=== PATIENT | male | born 1955 | race Caucasian/White ===

== ENCOUNTER 2016-06-14 11:13 | Emergency (ER) | payer OTHER ==
--- NOTE | 2016-06-14 12:16 | RAD ---
Indication: Bradycardia. Single frontal view of the chest performed at 1200 hours was reviewed. No prior study is available for comparison. No mediastinal shift is noted. Heart is of normal size and configuration. Lung phan appear clear. IMPRESSION: NO ACTIVE CARDIOPULMONARY DISEASE IS NOTED.
[2016-06-14 12:46] LABS: Hematocrit 48 % (42-52); Hemoglobin 16.6 g/dl (14.0-18.0); Mean Corpuscular HGB Conc 34 g/dl (31-36); Mean Corpuscular Hemoglobin 30 pg (27-31); Mean Corpuscular Volume 86 fL (80-94); Mean Platelet Volume 9 um3 (7.4-10.4); Red Blood Count 5.62 10^6/ul (4.0-5.4); Red Cell Distribution Width 15 % (10.5-15); White Blood Count 9.4 10^3/ul (3.5-10.8)
[2016-06-14 12:59] LABS: Albumin 4.6 g/dL (3.2-5.2); Calcium 10.3 mg/dL (8.6-10.3); EGFR African American 85.7 (>60); EGFR Non-African American 66.7 (>60); Globulin 3.3 g/dL (2-4); Magnesium 2.2 mg/dL (1.9-2.7); Potassium 4.9 mmol/L (3.5-5.0); Total Bilirubin 0.9 mg/dL (0.2-1.0); Total Protein 7.9 g/dL (6.4-8.9)
[2016-06-14 13:03] LABS: Troponin I 0.06 ng/mL (<0.04)
[2016-06-14] MEDS ORDERED: Aspirin Low Dose CHEW TAB* 81 MG PO ONE (13:28)
[2016-06-14] MEDS ORDERED: Rivaroxaban TAB(*) 10 MG PO ONE (13:46)
--- NOTE | 2016-06-14 16:57 | ED ---
Satinder Paz Benjamin, scribed for Richard Amezquita MD on 06/14/16 at 1141 . Palpitations / Dysrhythmia - HPI Summary HPI Summary: 60yo male who was sent from his PCPs office after EKG readings of afib and inverted t wave. Pt reports SOB with movement and exertion. Denies visual changes, NAV[place], or weakness. - History of Current Complaint Chief Complaint: EDDysrhythmPalp Time Seen by Provider: 06/14/16 11:31 Hx Obtained From: Patient Onset/Duration: Sudden Onset, Lasting Minutes Severity Initially: Mild Severity Currently: None Aggravating: Nothing Alleviating: Nothing Associated Signs & Symptoms: Shortness of Breath - Allergy/Home Medications Allergies/Adverse Reactions: Allergies Allergy/AdvReac Type Severity Reaction Status Date / Time No Known Allergies Allergy Verified 10/08/15 13:48 PMH/Surg Hx/FS Hx/Imm Hx Endocrine/Hematology History: Denies: Hx Diabetes Cardiovascular History: Reports: Hx Hypertension - ON MEDICATION Denies: Hx Pacemaker/ICD Respiratory History: Reports: Hx Asthma - gerd/ulcers in high school GI History: Reports: Hx Ulcer - at 20 years of age Denies: Hx Gastrointestinal Bleed - no dark stool History: Denies: Hx Renal Disease Sensory History: Denies: Hx Hearing Aid Psychiatric History: Denies: Hx Panic Disorder - Surgical History Surgery Procedure, Year, and Place: FINGER SURGERY, TONSILS Infectious Disease History: No Infectious Disease History: Denies: History Other Infectious Disease, Traveled Outside the [place] in Last 30 Days - Family History Known Family History: Positive: Cardiac Disease, Renal Disease - Social History Lives: With Family Alcohol Use: Weekly Alcohol Amount: COUPLE TIMES WKLY Substance Use Type: Reports: None Smoking Status (MU): Never Smoked Tobacco Review of Systems Constitutional: Negative Eyes: Negative ENT: Negative Positive: Palpitations Positive: Shortness Of Breath Gastrointestinal: Negative Genitourinary: Negative Musculoskeletal: Negative Skin: Negative Neurological: Negative Psychological: Normal All Other Systems Reviewed And Are Negative: Yes Physical Exam Triage Information Reviewed: Yes Vital Signs On Initial Exam: Initial Vitals Temp Pulse Resp BP Pulse Ox 98.4 F 54 20 152/81 98 06/14/16 11:21 06/14/16 11:21 06/14/16 11:21 06/14/16 11:21 06/14/16 11:21 Vital Signs Reviewed: Yes Appearance: Positive: Well-Appearing, No Pain Distress, Obese Skin: Positive: Warm, Skin Color Reflects Adequate Perfusion, Dry Head/Face: Positive: Normal Head/Face Inspection Eyes: Positive: Normal ENT: Positive: Normal ENT inspection Neck: Positive: Supple, Nontender Respiratory/Lung Sounds: Positive: Clear to Auscultation, Breath Sounds Present Cardiovascular: Positive: IRR Abdomen Description: Positive: Nontender, No Organomegaly, Soft Bowel Sounds: Positive: Present Musculoskeletal: Positive: Normal, Strength/ROM Intact Neurological: Positive: Normal, Sensory/Motor Intact, Alert, Oriented to Person Place, Time, CN Intact II-III Psychiatric: Positive: Affect/Mood Appropriate Diagnostics - Vital Signs Vital Signs Temp Pulse Resp BP Pulse Ox 06/14/16 11:21 98.4 F 54 20 152/81 98 - Laboratory Lab Results: Lab Results 06/14/16 06/14/16 06/14/16 Range/Units 12:25 12:25 12:25 WBC 9.4 (3.5-10.8) 10^3/ul RBC 5.62 H (4.0-5.4) 10^6/ul Hgb 16.6 (14.0-18.0) g/dl Hct 48 (42-52) % MCV 86 (80-94) fL MCH 30 (27-31) pg MCHC 34 (31-36) g/dl RDW 15 (10.5-15) % Plt Count 165 (150-450) 10^3/ul MPV 9 (7.4-10.4) um3 Neut % (Auto) 70.6 (38-83) % Lymph % (Auto) 18.1 L (25-47) % [place] % (Auto) 9.1 H (1-9) % Eos % (Auto) 1.2 (0-6) % Baso % (Auto) 1.0 (0-2) % Absolute Neuts (auto) 6.6 (1.5-7.7) 10^3/ul Absolute Lymphs (auto) 1.7 (1.0-4.8) 10^3/ul Absolute Monos (auto) 0.9 H (0-0.8) 10^3/ul Absolute Eos (auto) 0.1 (0-0.6) 10^3/ul Absolute Basos (auto) 0.1 (0-0.2) 10^3/ul Absolute Nucleated RBC 0.01 10^3/ul Nucleated RBC % 0.1 INR (Anticoag Therapy) (0.89-1.11) D-Dimer, Quantitative (Less Than 230) ng/mL Sodium 137 (133-145) mmol/L Potassium 4.9 (3.5-5.0) mmol/L Chloride 104 (101-111) mmol/L Carbon Dioxide 26 (22-32) mmol/L Anion Gap 7 (2-11) mmol/L BUN 17 (6-24) mg/dL Creatinine 1.13 (0.67-1.17) mg/dL Est GFR ( Amer) 85.7 (>60) Est GFR (Non-Af Amer) 66.7 (>60) BUN/Creatinine Ratio 15.0 (8-20) Glucose 94 (70-100) mg/dL Lactic Acid 1.7 (0.5-2.0) mmol/L Calcium 10.3 (8.6-10.3) mg/dL Magnesium 2.2 (1.9-2.7) mg/dL Total Bilirubin 0.90 (0.2-1.0) mg/dL AST 31 (13-39) U/L ALT 28 (7-52) U/L Alkaline Phosphatase 26 L (34-104) U/L Troponin I 0.06 H* (<0.04) ng/mL B-Natriuretic Peptide ( - 100) pg/mL Total Protein 7.9 (6.4-8.9) g/dL Albumin 4.6 (3.2-5.2) g/dL Globulin 3.3 (2-4) g/dL Albumin/Globulin Ratio 1.4 (1-3) 06/14/16 06/14/16 06/14/16 Range/Units 12:25 12:25 15:42 WBC (3.5-10.8) 10^3/ul RBC (4.0-5.4) 10^6/ul Hgb (14.0-18.0) g/dl Hct (42-52) % MCV (80-94) fL MCH (27-31) pg MCHC (31-36) g/dl RDW (10.5-15) % Plt Count (150-450) 10^3/ul MPV (7.4-10.4) um3 Neut % (Auto) (38-83) % Lymph % (Auto) (25-47) % [place] % (Auto) (1-9) % Eos % (Auto) (0-6) % Baso % (Auto) (0-2) % Absolute Neuts (auto) (1.5-7.7) 10^3/ul Absolute Lymphs (auto) (1.0-4.8) 10^3/ul Absolute Monos (auto) (0-0.8) 10^3/ul Absolute Eos (auto) (0-0.6) 10^3/ul Absolute Basos (auto) (0-0.2) 10^3/ul Absolute Nucleated RBC 10^3/ul Nucleated RBC % INR (Anticoag Therapy) 0.98 (0.89-1.11) D-Dimer, Quantitative < 200 (Less Than 230) ng/mL Sodium (133-145) mmol/L Potassium (3.5-5.0) mmol/L Chloride (101-111) mmol/L Carbon Dioxide (22-32) mmol/L Anion Gap (2-11) mmol/L BUN (6-24) mg/dL Creatinine (0.67-1.17) mg/dL Est GFR ( Amer) (>60) Est GFR (Non-Af Amer) (>60) BUN/Creatinine Ratio (8-20) Glucose (70-100) mg/dL Lactic Acid (0.5-2.0) mmol/L Calcium (8.6-10.3) mg/dL Magnesium (1.9-2.7) mg/dL Total Bilirubin (0.2-1.0) mg/dL AST (13-39) U/L ALT (7-52) U/L Alkaline Phosphatase (34-104) U/L Troponin I 0.05 H* (<0.04) ng/mL B-Natriuretic Peptide 88 ( - 100) pg/mL Total Protein (6.4-8.9) g/dL Albumin (3.2-5.2) g/dL Globulin (2-4) g/dL Albumin/Globulin Ratio (1-3) Result Diagrams: 06/14/16 12:25 06/14/16 12:25 Lab Statement: Any lab studies that have been ordered have been reviewed, and results considered in the medical decision making process. - Radiology CXR Xray Interpretation: No Acute Changes Radiology Interpretation Completed By: Radiologist - EKG 1131. Cardiac Rate: NL - 50bpm EKG Rhythm: Atrial Fibrillation ST Segment: Normal Ectopy: None Course/Dx - Course Assessment/Plan: DISCUSSED WITH DR PRINGLE. WILL START XARELTO 20MG ONCE A DAY. OUT PATIENT F/U WITH PMD AND NURSES AIDE. PATIENT HAS HAD NO CHEST PAIN. TROPONINS DID NOT INCREASE IN ED. DISCHARGE HOME STABLE. - Diagnoses Provider Diagnoses: A-fib Discharge - Discharge Plan Condition: Stable Disposition: HOME Patient Education Materials: Atrial Fibrillation (ED) Referrals: Filipe Zheng MD [Primary Care Provider] - Additional Instructions: FOLLOW UP WITH YOUR DOCTOR AND WITH CARDIOLOGY. YOUR CASE WAS DISCUSSED WITH THE NURSES AIDE DR PRINGLE. TAKE XARELTO 20MG ONCE A DAY. RETURN TO THE EMERGENCY DEPARTMENT FOR ANY WORSENING OF YOUR CONDITION; CHEST PAIN, SHORTNESS OF BREATH, YOU FEEL ILL OR QUESTIONS OR CONCERNS. The documentation as recorded by the Satinder mobley Benjamin accurately reflects the service I personally performed and the decisions made by me, Richard Amezquita MD.
[2016-06-14 17:43] VITALS: BP 147/78
== END 2016-06-14 17:47 | disposition home or self-care (01) ==
LOC: ED 11:13
DX: I48.91 Unspecified atrial fibrillation (principal); R06.02 Shortness of breath; R00.2 Palpitations
CPT/HCPCS: 36415; 71010; 80053; 83605; 83735; 83880; 84484; 85025; 85379; 85610; 93005; 99283; A9270-GY

== ENCOUNTER 2017-06-22 07:47 | Emergency (ER) | payer SELFPAY ==
[2017-06-22 08:09] VITALS: BP 128/82
--- NOTE | 2017-06-22 08:56 | UC ---
Knee Pain HPI - HPI Summary HPI Summary: ONSET OF LEFT KNEE PAIN YESTERDAY AFTER BEING ON HIS FEET ALL DAY. WAS UP ON A STEPLADDER BUT DENIES ANY ACUTE INJURY. DID NOT FALL OR TWIST HIS KNEE. IS HAVING DIFFICULTY WALKING AND BENDING HIS KNEE. HAS HAD HYLAGEN INJECTIONS FOR OA IN THAT KNEE ABOUT 5 YEARS AGO. - History of Current Complaint Chief Complaint: UCLowerExtremity Stated Complaint: KNEE INJURY Time Seen by Provider: 06/22/17 08:24 Hx Obtained From: Patient Onset/Duration: Sudden Onset, Lasting Hours, Still Present Severity Initially: Moderate Severity Currently: Moderate Pain Intensity: 6 Pain Scale Used: 0-10 Numeric Character: Aching, Throbbing Aggravating Factor(s): Movement, Weight Bearing Alleviating Factor(s): Rest Associated Signs And Symptoms: Positive: Swelling - Allergies/Home Medications Allergies/Adverse Reactions: Allergies Allergy/AdvReac Type Severity Reaction Status Date / Time rivaroxaban [From Xarelto] Allergy Intermediate Itching Verified 06/22/17 08:10 Home Medications: Home Medications amLODIPine TAB* [Norvasc 5 mg TAB*] 5 mg PO DAILY 06/22/17 [History Confirmed ] PMH/Surg Hx/FS Hx/Imm Hx Endocrine History: Dyslipidemia Cardiovascular History: Hypertension, Atrial Fibrillation - Surgical History Surgical History: Yes Surgery Procedure, Year, and Place: FINGER SURGERY, TONSILS - Family History Known Family History: Positive: Cardiac Disease, Renal Disease - Social History Alcohol Use: Weekly Alcohol Amount: COUPLE TIMES WKLY Substance Use Type: None Smoking Status (MU): Never Smoked Tobacco - Immunization History Most Recent Tetanus Shot: <5 YEARS Review of Systems Constitutional: Negative Skin: Negative Respiratory: Negative Cardiovascular: Negative Gastrointestinal: Negative Musculoskeletal: Arthralgia, Decreased ROM, Edema All Other Systems Reviewed And Are Negative: Yes Physical Exam Triage Information Reviewed: Yes Appearance: Well-Appearing, No Pain Distress, Well-Nourished Vital Signs: Initial Vital Signs Temp 97.4 F 06/22/17 07:59 Pulse 60 06/22/17 07:59 Resp 22 06/22/17 07:59 BP 128/82 06/22/17 07:59 Pulse Ox 98 06/22/17 07:59 Vital Signs Reviewed: Yes Eyes: Positive: Conjunctiva Clear ENT: Positive: Hearing grossly normal Neck: Positive: Supple Respiratory: Positive: No respiratory distress, No accessory muscle use Cardiovascular: Positive: Pulses Normal Abdomen Description: Positive: Soft Musculoskeletal: Positive: ROM Limited @ - LEFT KNEE, Edema @ - LEFT KNEE, Other : - LEFT KNEE: NO JOINT LINE TENDERNESS OR TENDERNESS OVER ANY BONY PROMINENCES. MCL AND LCL INTACT TO STRESS TESTING. NEG LACHMANS. NEG DRAWERS SIGNS. NEG MCMURRAYS. NO TENDERNESS OVER PATELLAR LIGAMENT OR QUADRICEPS TENDON. DECREASED ROM (FLEXION). Diagnostics - Radiology LEFT KNEE XRAYS Xray Interpretation: Positive (See Comments) - LARGE JOINT EFFUSION, NO FRACTURE IS SEEN. Radiology Interpretation Completed By: Radiologist Knee Pain Course/Dx - Course Course Of Treatment: DR. DAMON WILL SEE PT IN OFFICE. PT TO GO DIRECTLY TO ORTHO OFFICE FROM HERE. - Differential Dx/Diagnosis Provider Diagnoses: LEFT KNEE EFFUSION Discharge - Discharge Plan Condition: Stable Disposition: HOME Patient Education Materials: Swollen Knee Joint (ED) Referrals: Filipe Zheng MD [Primary Care Provider] - If Needed Dixon Damon MD [Medical Doctor] - (GO DIRECTLY TO THE ORTHO OFFICE FROM HERE FOR FURTHER EVALUATION.) Additional Instructions: XRAY SHOWED A LARGE JOINT EFFUSION, NO FRACTURE. WE HAVE ARRANGED FOR YOU TO BE SEEN BY DR. DAMON (ORTHO). GO DIRECTLY TO THE OFFICE FROM HERE.
--- NOTE | 2017-06-22 09:18 | RAD ---
INDICATION: Left knee pain. TECHNIQUE: 4 views of the left knee were obtained. FINDINGS: The bones are in normal alignment. There is a large joint effusion present. No acute fracture is seen. There appears to be an old healed fracture of the proximal fibula. There is mild osteoarthritic change in the patellofemoral and medial compartments. IMPRESSION: LARGE JOINT EFFUSION, NO FRACTURE IS SEEN.
== END 2017-06-22 09:36 | disposition home or self-care (01) ==
LOC: UCEAST 07:47
DX: M25.462 Effusion, left knee (principal); M25.562 Pain in left knee; E78.5 Hyperlipidemia, unspecified; I48.91 Unspecified atrial fibrillation; Z88.8 Allergy status to other drugs, medicaments and biological substances
CPT/HCPCS: 99211; G0463

== ENCOUNTER 2019-04-18 12:40 | Emergency (ER) | payer OTHER ==
--- OUTSIDE RECORDS SUMMARY | 2019-04-18 13:03 | XMS REPORT | Continuity of Care Document ---
:1955 External Reference #:[id number] Author Name Daniela Lopez DNP, RN, MEDICAL ASSISTANT CARDIOLOGY-BC (transmitted by agent of provider Rosa Maria Herndon) Address [address] [facility], [address] [address] Care Team Providers Name Role Phone Filipe Zheng MD - Family Medicine Care Team Information Rectifying Attendant Problems Active Problems Provider Date Obstructive sleep apnea of adult Daniela Lopez DNP, RN, MEDICAL ASSISTANT CARDIOLOGY-BC Onset: Knee joint effusion Dixon Mcgraw MD Onset: 06/22/2017 Localized, primary osteoarthritis Dixon Mcgraw MD Onset: 06/22/2017 Derangement of medial meniscus Dixon Mcgraw MD Onset: 06/22/2017 Social History Type Date Description Comments Sex Unknown Tobacco Use Start: Unknown End: Former cigar smoker Around 2007 Unknown ETOH Use Occasionally consumes 2-3 gin and tonics alcohol weekly Recreational Drug Use Denies Drug Use Tobacco Use Start: Unknown End: Patient is a former Cigars, around 2007 Unknown smoker Smoking Status Reviewed: 03/25/19 Patient is a former Cigars, around 2007 smoker Exercise Type/Frequency Does not exercise Allergies, Adverse Reactions, Alerts Active Allergies Reaction Severity Comments Date Xarelto 11/06/2016 Inactive Allergies NKDA 07/29/2008 Medications Active Medications SIG Qnty Indications Ordering Date Provider Lisinopril 1 by mouth 90tabs Qutaybeh S. 08/16/2018 10mg Tablets every day Gwen Berkowitz Hydrochlorothiazide 1 by mouth 90tabs I10 Qutaybeh S. 06/14/2018 25mg Tablets every day Gwen Berkowitz Lovenox sq as directed 5units Crystal S. 04/11/2017 120mg/0.8ML Solution prior to dental alfredo Berkowitz M.D. Pradaxa one by mouth 180caps Mariontavirgen S. 07/18/2016 150mg Capsules twice a day Gwen Berkowitz Cpap qhs Qutavirgen S. 07/29/2008 Gwen Berkowitz Pantoprazole 1 po qd 90units Unknown 40mg Pravastatin Sodium 1 tablet by 90tabs Unknown 40mg Tablets mouth nightly Fluoxetine HCL 1 po qd 90caps Unknown 40mg Capsules Aspirin 1 po qd 30tabs Unknown 81mg Tablets Vitamin D3 1 by mouth Unknown 2000Unit Tablets every day Amlodipine Besylate 1 by mouth I10 Unknown 10mg Tablets every day Ibuprofen 2 tabs once Unknown 200mg daily prn pain-takes rarely Medications Administered in Office Medication SIG Qnty Indications Ordering Provider Date Triamcinolone (Kenalog) Dixon Mcgraw MD 06/22/2017 Injection Immunizations Description No Information Available Vital Signs Date Vital Result Comment 03/25/2019 8:22am Height 69 inches 5'9" Weight 307.00 lb Heart Rate 48 /min BP Systolic Sitting 144 mmHg Lue large cuff BP Diastolic Sitting 76 mmHg Lue large cuff O2 % BldC Oximetry 96 % On Ra BMI (Body Mass Index) 45.3 kg/m2 03/17/2019 9:23am Height 69 inches 5'9" Weight 311.00 lb with shoes Heart Rate 52 /min radial,regular BP Systolic Sitting 130 mmHg LA,reg cuff BP Diastolic Sitting 70 mmHg LA,reg cuff BP Systolic Standing 126 mmHg LA, reg cuff BP Diastolic Standing 62 mmHg LA, reg cuff BMI (Body Mass Index) 45.9 kg/m2 Ejection Fraction 55%-60% echo 06/21/18 Results Description No Information Available Procedures Date Code Description Status 03/17/2019 13156 EKG Tracing & Interpretation Completed 03/07/2019 69724 Holter Monitor Review (24 hr)dr review & interp only Completed 03/05/2019 80691 ECG Monitor/Recording W/Visual Superimposition Scanning Completed 03/05/2019 49605 ECG Monitor/Recording W/Visual Superimposition Scanning Completed 12/03/2018 58155 Polysomnography Sleep Staging 4+ Parameters W/Cpap Completed Medical Devices Description No Information Available Encounters Type Date Location Provider Dx Diagnosis Office Visit 03/17/2019 [facility] Crystal Baumann. I48.20 Chronic atrial 9:40a Gwen Berkowitz fibrillation, unspecified G47.33 Obstructive sleep apnea (adult) (pediatric) E66.9 Obesity, unspecified I10 Essential (primary) hypertension I77.810 Thoracic aortic ectasia E78.5 Hyperlipidemia, unspecified R00.1 Bradycardia, unspecified Office Visit 01/23/2019 [facility] G47.33 Obstructive sleep 8:00a [facility] apnea (adult) [facility] (pediatric) G47.00 Insomnia, unspecified Office Visit 12/11/2018 [facility] G47.33 Obstructive sleep 8:00a [facility] apnea (adult) [facility] (pediatric) E66.9 Obesity, unspecified R53.83 Other fatigue Z68.41 Body mass index (BMI) 40.0-44.9, adult Office Visit 10/23/2018 8:00a [facility] G47.33 Obstructive sleep [facility] (adult) [facility] (pediatric) R53.83 Other fatigue E66.9 Obesity, unspecified Z68.42 Body mass index (BMI) 45.0-49.9, adult Assessments Date Code Description Provider 03/25/2019 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 unspecified 03/17/2019 G47.33 Obstructive sleep apnea (adult) Crystal Berkowitz M.D. (pediatric) 03/17/2019 E66.9 Obesity, unspecified Crystal Berkowitz M.D. 03/17/2019 I10 Essential (primary) hypertension Crystal Berkowitz M.D. 03/17/2019 I77.810 Thoracic aortic ectasia Crystal Berkowitz M.D. 03/17/2019 E78.5 Hyperlipidemia, unspecified Crystal Berkowitz M.D. 03/17/2019 R00.1 Bradycardia, unspecified Crysatl Berkowitz M.D. 03/07/2019 I48.20 Chronic atrial fibrillation, Crystal Berkowitz M.D. unspecified 03/05/2019 I48.20 Chronic atrial fibrillation, Crystal Berkowitz M.D. unspecified 03/05/2019 I48.20 Chronic atrial fibrillation, Nurse Visit cc unspecified 01/23/2019 G47.33 Obstructive sleep apnea (adult) Sabine Nash NP (pediatric) 01/23/2019 G47.00 Insomnia, unspecified Sabine Nash NP 12/11/2018 G47.33 Obstructive sleep apnea (adult) Sabine Nash NP (pediatric) 12/11/2018 E66.9 Obesity, unspecified Sabine Nash NP 12/11/2018 R53.83 Other fatigue Sabine Nash NP 12/11/2018 Z68.41 Body mass index (BMI) 40.0-44.9, Sabine Nash NP adult 12/03/2018 G47.33 Obstructive sleep apnea (adult) Shirin Maya MD (pediatric) 10/23/2018 G47.33 Obstructive sleep apnea (adult) Shirin Maya MD (pediatric) 10/23/2018 R53.83 Other fatigue Shirin Maya MD 10/23/2018 E66.9 Obesity, unspecified Shirin Maya MD 10/23/2018 Z68.42 Body mass index (BMI) 45.0-49.9, Shirin Maya MD adult Plan of Treatment 03/25/2019 - Daniela Lopez DNP, RN, MEDICAL ASSISTANT CARDIOLOGY-BCG47.26 Circadian rhythm sleep disorder, shift work typeComments:Most likely the problem is shift work and not insomnia. The "can not sleep" is most likely due to sleep scheduling or going to bed too early.Follow up:3-4 weeks 45 minutesRecommendations:Keep sleep diary based on "perception", not a clock After 2-weeks you can determine your sleep ability by dividing the total hours (dark blocks x=number) of sleep by 14. X divided by 14. We discussed your work schedule: [phone] then 7-10 8 AM-9 PM Recommend keeping wake time consistent at 5:30 AM or try to move the wake time to 6 AM. We discussed trying 10 PM as bedtime (except on late shift days) If you go to bed and can not fall asleep around 15 minutes then get out of bed for 30 minutes. See handout for sleep hygiene *electronics blue light screen Please call me if you haveany questions.G47.33 Obstructive sleep apnea ( adult) (pediatric)Comments:Well treated, continue CPAPRecommendations:Continue PAP device, Benefitting and compliant with treatment. Cleaning Wipe off mask daily (baby wipe-no scent, or warm water) Clean mask, tubing, filter, and water chamber weekly in mild no scent dish soap and water. Hang to dry. If you have any sleepiness while driving you MUST avoid operating a vehicle or machinery. If you have difficulty with your equipment, or need to replace your mask or hoses, please contact your homecare agency. A weight change of 20 pounds or more may have an effect onyour equipment; if you are experiencing problems please call for an appointment. If you have any further questions, please call the [facility] at [phone]. Functional Status Description No Information Available Mental Status Description No Information Available Referrals Description No Information Available
--- OUTSIDE RECORDS SUMMARY | 2019-04-18 13:03 | XMS REPORT | Continuity of Care Document ---
:1955 External Reference #:[id number] Author Name Crystal Berkowitz M.D. 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 Problems Active Problems Provider Date Obstructive sleep apnea of adult Daniela Lopez DNP, RN, SECURITY PROFESSIONAL- Onset: Knee joint effusion Dixon Mcgraw MD Onset: 06/22/2017 Localized, primary osteoarthritis Dixon Mcgraw MD Onset: 06/22/2017 Derangement of medial meniscus Dixon Mcgraw MD Onset: 06/22/2017 Social History Type Date Description Comments Sex Unknown Tobacco Use Start: Unknown End: Former Cigarette Smoker Unknown Smoking Status Reviewed: 03/17/19 Former Cigarette Smoker ETOH Use Occasionally consumes 2-3 gin and tonics alcohol weekly Tobacco Use Start: Unknown Patient has never smoked Recreational Drug Use Denies Drug Use Exercise Type/Frequency Does not exercise Allergies, Adverse Reactions, Alerts Active Allergies Reaction Severity Comments Date Xarelto 11/06/2016 Inactive Allergies NKDA 07/29/2008 Medications Active Medications SIG Qnty Indications Ordering Date Provider Lisinopril 1 by mouth 90tabs Crystal S. 08/16/2018 10mg Tablets every day Gwen Berkowitz Hydrochlorothiazide 1 by mouth 90tabs I10 Crystal S. 06/14/2018 25mg Tablets every day Gwen Berkowitz Lovenox sq as directed 5units Crystal S. 04/11/2017 120mg/0.8ML Solution prior to dental alfredo Berkowitz M.D. Pradaxa one by mouth 180caps Crystal S. 07/18/2016 150mg Capsules twice a day Gwen Berkowitz Cpap qhs Crystal S. 07/29/2008 Gwen Berkowitz Pantoprazole 1 po [...] Available Vital Signs Date Vital Result Comment 03/17/2019 9:23am Height 69 inches 5'9" Weight 311.00 lb with shoes Heart Rate 52 /min radial,regular BP Systolic Sitting 130 mmHg LA,reg cuff BP Diastolic Sitting 70 mmHg LA,reg cuff BP Systolic Standing 126 mmHg LA, reg cuff BP Diastolic Standing 62 mmHg LA, reg cuff BMI (Body Mass Index) 45.9 kg/m2 Ejection Fraction 55%-60% echo 06/21/18 01/23/2019 7:51am Height 69 inches 5'9" Weight 308.00 lb Heart Rate 54 /min BP Systolic Sitting 126 mmHg Lue large cuff BP Diastolic Sitting 74 mmHg Lue large cuff Respiratory Rate 12 /min O2 % BldC Oximetry 97 % BMI (Body Mass Index) 45.5 kg/m2 Results Description No Information Available Procedures Date Code Description Status 03/17/2019 44397 EKG Tracing & Interpretation Completed 03/07/2019 33095 Holter Monitor Review (24 hr)dr review & interp only Completed 03/05/2019 34519 ECG Monitor/Recording W/Visual Superimposition Scanning Completed 03/05/2019 32466 ECG Monitor/Recording W/Visual Superimposition Scanning Completed 12/03/2018 25780 Polysomnography Sleep Staging 4+ Parameters W/Cpap Completed Medical Devices Description No Information Available Encounters Type Date Location Provider Dx Diagnosis Office Visit 01/23/2019 [facility] G47.33 Obstructive sleep 8:00a [facility] apnea (adult) [facility] (pediatric) G47.00 Insomnia, unspecified Office Visit 12/11/2018 [facility] G47.33 Obstructive sleep 8:00a [facility] a[facility] apnea (adult) [facility] (pediatric) E66.9 Obesity, unspecified R53.83 Other fatigue Z68.41 Body mass index (BMI) 40.0-44.9, adult Office Visit 10/23/2018 8:00a [facility] G47.33 Obstructive sleep [facility] (adult) [facility] (pediatric) R53.83 Other fatigue E66.9 Obesity, unspecified Z68.42 Body mass index (BMI) 45.0-49.9, adult Assessments Date Code Description Provider 03/17/2019 I48.20 Chronic atrial fibrillation, Crystal Berkowitz M.D. unspecified 03/17/2019 G47.33 Obstructive sleep apnea (adult) Crystal Berkowitz M.D. (pediatric) 03/17/2019 E66.9 Obesity, unspecified Crystal Berkowitz M.D. 03/17/2019 I10 Essential (primary) hypertension Crystal Berkowitz M.D. 03/17/2019 I77.810 Thoracic aortic ectasia Crystal Berkowitz M.D. 03/17/2019 E78.5 Hyperlipidemia, unspecified Crystal Berkowitz M.D. 03/17/2019 R00.1 Bradycardia, unspecified Crystal Berkowitz M.D. 03/07/2019 I48.20 Chronic atrial fibrillation, [...] 12/11/2018 Z68.41 Body mass index (BMI) 40.0-44.9, adult [facility] NP 12/03/2018 G47.33 Obstructive sleep apnea (adult) Shirin Maya MD (pediatric) 10/23/2018 G47.33 Obstructive sleep apnea (adult) Shirin Maya MD (pediatric) 10/23/2018 R53.83 Other fatigue Shirin Maya MD 10/23/2018 E66.9 Obesity, unspecified Shirin Maya MD 10/23/2018 Z68.42 Body mass index (BMI) 45.0-49.9, adult Shirin Maya MD Plan of Treatment Future Appointment(s):03/25/2019 8:30 am - Daniela Lopez DNP, RN, SECURITY PROFESSIONAL-BC at [facility]03/17/2019 - Crystal Berkowitz M.D.I48.20 Chronic atrial fibrillation, unspecifiedFollow up:8 months ovG47.33 Obstructive sleep apnea (adult) (pediatric)E66.9 Obesity, [id number] Essential (primary) [id number] Thoracic aortic ectasiaNew Orders: Echocardiogram, Ordered: 03/17/19E78.5 Hyperlipidemia, [id number] Bradycardia, unspecifiedNew Orders:24 hour holter monitor, Ordered: 03/17/19 Functional Status Description No Information Available Mental Status Description No Information Available Referrals Description No Information Available
[2019-04-18] MEDS ORDERED: Diazepam TAB(*) 5 MG PO ONE (14:29)
--- NOTE | 2019-04-18 14:31 | ED ---
Back Pain - HPI Summary HPI Summary: Patient is a 63-year-old male who presents emergency department for back pain after fall that occurred this morning. Patient states he rolled out of bed and struck his upper back on a nightstand and then fell to the floor. Patient states he occasionally rolls out of bed. Patient denies head injury, headache, neck pain, chest pain, shortness of breath, numbness, tingling or weakness. Patient states pain to upper back has persisted and feels like an intermittent muscle spasm. Pt. otherwise denies CP, SOB, numbness, tingling, weakness, h/a, neck pain. Sxs are mild in severity. No current modifying factors. - History of Current Complaint Chief Complaint: EDBackInjuryPain Stated Complaint: BACK INJURY FROM FALL PER PT Time Seen by Provider: 04/18/19 14:14 Hx Obtained From: Patient Pain Intensity: 10 - Allergies/Home Medications Allergies/Adverse Reactions: Allergies Allergy/AdvReac Type Severity Reaction Status Date / Time rivaroxaban [From Xarelto] Allergy Intermediate Itching Verified 06/22/17 08:10 PMH/Surg Hx/FS Hx/Imm Hx Previously Healthy: Yes Endocrine/Hematology History: Denies: Hx Diabetes Cardiovascular History: Reports: Hx Angina, Hx Hypercholesterolemia, Hx Hypertension - ON MEDICATION Denies: Hx Myocardial Infarction, Hx Pacemaker/ICD, Hx Valvular Heart Disease Respiratory History: Denies: Hx Asthma, Hx Chronic Obstructive Pulmonary Disease (COPD) GI History: Reports: Hx Ulcer - at 20 years of age Denies: Hx Gastrointestinal Bleed - no dark stool History: Denies: Hx Renal Disease Sensory History: Denies: Hx Hearing Aid Psychiatric History: Denies: Hx Panic Disorder - Surgical History Surgery Procedure, Year, and Place: FINGER SURGERY, TONSILS Infectious Disease History: No Infectious Disease History: Denies: History Other Infectious Disease, Traveled Outside the [place] in Last 30 Days - Family History Known Family History: Positive: Cardiac Disease, Renal Disease, Non-Contributory - Social History Occupation: Employed Full-time Lives: With Family Alcohol Use: Weekly Alcohol Amount: COUPLE TIMES WKLY Substance Use Type: Reports: None Smoking Status (MU): Former Smoker Review of Systems Constitutional: Negative Negative: Fever Cardiovascular: Negative Negative: Palpitations, Chest Pain Respiratory: Negative Negative: Shortness Of Breath, Cough Positive: Other - Upper back pain Skin: Negative Neurological: Negative Negative: Weakness, Paresthesia, Numbness All Other Systems Reviewed And Are Negative: Yes Physical Exam Triage Information Reviewed: Yes Vital Signs On Initial Exam: Initial Vitals Temp Pulse Resp BP Pulse Ox 98.9 F 60 18 162/70 98 04/18/19 12:46 04/18/19 12:46 04/18/19 12:46 04/18/19 12:46 04/18/19 12:46 Vital Signs Reviewed: Yes Appearance: Positive: Pain Distress - Pt. sitting on edge of bed intermittently wincing in pain. present. Skin: Positive: Warm, Dry Head/Face: Positive: Normal Head/Face Inspection Eyes: Positive: Normal, EOMI Neck: Positive: Supple, Nontender Respiratory/Lung Sounds: Positive: Clear to Auscultation, Breath Sounds Present. Negative: Rales, Rhonchi, Wheezes Cardiovascular: Positive: Normal, RRR Musculoskeletal: Positive: Normal, Strength/ROM Intact, Other - Paraspinal tenderness to the thoracic region. No ecchymosis edema or abrasions. Neurological: Positive: Normal, CN Intact II-III Psychiatric: Positive: Affect/Mood Appropriate Procedures - Sedation Patient Received Moderate/Deep Sedation with Procedure: No Diagnostics - Vital Signs Vital Signs Temp Pulse Resp BP Pulse Ox 04/18/19 12:46 98.9 F 60 18 162/70 98 - Laboratory Lab Statement: Any lab studies that have been ordered have been reviewed, and results considered in the medical decision making process. Back Pain Course/Dx - Course Course Of Treatment: Patient with upper back pain after a fall. No neurological deficits. X-ray negative for acute findings. Patient seems to be having muscle spasms was given doesn't 9 in the ER with good improvement. Short prescription for Flexeril prescribed. Advised Tylenol for pain as directed. Warm compresses and massage. Follow-up with PCP on Sunday if symptoms persist and return to the ER symptoms change or worsen. Patient understands and agrees with plan. - Diagnoses Differential Diagnosis/HQI/PQRI: Positive: Fracture, Strain, Sprain Provider Diagnoses: Muscle spasm Discharge ED - Sign-Out/Discharge Documenting (check all that apply): Patient Departure - Discharge Plan Condition: Improved Disposition: HOME Prescriptions: Cyclobenzaprine TAB* [Flexeril 10 MG TAB*] 10 mg PO TID PRN #9 tab PRN Reason: Spasms Patient Education Materials: Muscle Spasm (ED) Referrals: Filipe Zheng MD [Primary Care Provider] - Additional Instructions: Follow up with PCP on Sunday if symptoms persist Muscle relaxer as directed Tylenol as directed for pain Gentle stretching and massage Return to ER if symptoms change or worsen - Billing Disposition and Condition Condition: IMPROVED Disposition: Home
[2019-04-18 15:58] VITALS: BP 132/77
== END 2019-04-18 15:57 | disposition home or self-care (01) ==
LOC: ED 12:40
DX: M62.838 Other muscle spasm (principal); E78.00 Pure hypercholesterolemia, unspecified; I10 Essential (primary) hypertension; Z87.891 Personal history of nicotine dependence; Z79.899 Other long term (current) drug therapy; Z88.8 Allergy status to other drugs, medicaments and biological substances
CPT/HCPCS: 72070; 99282; A9270-GY

== ENCOUNTER 2021-03-15 06:04 | Inpatient (IN) ==
[~2021-03-15 06:04] MED LIST: Buffered Lidocaine 1% SYRIN 1 ml INTRADERM ONE; DiMENhydriNATE IV 50 mg/ml 1 ml VIAL IV PUSH ONE; HYDROmorphone 1 MG/1 ML SYRINGE IV PRN; Lactated Ringers 1000 ml BAG 1,000 ML IV SCH; Naloxone 0.4 mg VIAL 0.4 mg/ml 1 ml VIAL IV PRN; Ondansetron 4 mg VIAL 2 MG/ML 2 ml VIAL IV PRN; fentaNYL 100 mcg/2 ml 50 MCG/ML VIAL IV PRN
[2021-03-15] MEDS ORDERED: Rocuronium 50 mg VIAL 10 mg/ml 5 ml VIAL (50 mg) ONE ×3 (06:47→12:18)
[2021-03-15] MEDS ORDERED: Dexamethasone IV 4 MG/ML VIAL 1 ml VIAL ONE (06:47)
[2021-03-15] MEDS ORDERED: Ondansetron 4 mg VIAL 2 MG/ML 2 ml VIAL ONE (06:47)
[2021-03-15] MEDS ORDERED: Lidocaine 2% PF 5 ML VIAL ONE (06:47)
[2021-03-15] MEDS ORDERED: Propofol 10 MG/ML 20 ML BTL ONE (06:47)
[2021-03-15] MEDS ORDERED: Midazolam 2 mg/2 ml VIAL 1 mg/ml 2 ml VIAL (2 mg) ONE (06:48)
[2021-03-15] MEDS ORDERED: fentaNYL 100 mcg/2 ml 50 MCG/ML VIAL ONE (06:48)
[2021-03-15] MEDS ORDERED: Heparin 5000 UNITS/ML 1 mL VIAL ONE (06:59)
[2021-03-15] MEDS ORDERED: ceFAZolin 1 GM ADVAN 1 GM ADDV.VIAL IVPB ONE (06:59)
[2021-03-15] MEDS ORDERED: ceFAZolin 2 GM in NS PREMIX 2 GM/100 ML BAG IVPB ONE (06:59)
[2021-03-15] MEDS ORDERED: DiMENhydriNATE IV 50 mg/ml 1 ml VIAL ONE (06:59)
[2021-03-15] MEDS ORDERED: Lidocaine 1% w EPI 1:200,000 SDV 30 ML VIAL ONE (07:17)
[2021-03-15] MEDS ORDERED: Methylene Blue 0.5 % 50 MG/10 ML AMP IV ONE (07:17)
[2021-03-15] MEDS ORDERED: Bupivacaine 0.5% SDV PF 30ML VIAL ONE (07:17)
[2021-03-15] MEDS ORDERED: Glycopyrrolate IV 0.2 MG/ML 1 ML VIAL ONE (07:27)
[2021-03-15] MEDS ORDERED: EPHEDrine (Pressors) 50 MG/ML VIAL ONE (08:30)
[2021-03-15] MEDS ORDERED: Morphine 10 MG/ML VIAL (1 ml) ONE (08:41)
[2021-03-15] MEDS ORDERED: Acetaminophen IV 1 GM/100ML 100 ML IV ONE (09:28)
[2021-03-15] MEDS ORDERED: ceFAZolin VIAL VIAL ONE ×3 (12:13)
[2021-03-15] MEDS ORDERED: Sugammadex 500 MG/5 ML 5 ml VIAL IV PUSH ONE (12:39)
[2021-03-15] MEDS ORDERED: HYDROcodone/ACET. 7.5/325 LIQ 15 ML UDC PO PRN (12:55)
[2021-03-15] MEDS ORDERED: HYDROmorphone 0.5 MG/0.5 ML SYRINGE IV SLOW PU PRN (12:55)
[2021-03-15] MEDS: Lactated Ringers 1000 ml BAG 1,000 ML IV SCH ×2 (15:04→22:57)
[2021-03-15] MEDS: Heparin 5000 UNITS/ML 1 mL VIAL SUBCUT SCH (21:13)
[2021-03-16] MEDS: Heparin 5000 UNITS/ML 1 mL VIAL SUBCUT SCH ×3 (06:04→22:31)
[2021-03-16] MEDS: Lactated Ringers 1000 ml BAG 1,000 ML IV SCH (06:06)
[2021-03-16] MEDS: D5W 1/2 NS KCl 20 meq 1000 ml 1,000 ML IV SCH ×2 (14:41→22:55)
[2021-03-16 15:21] LABS: Calcium 10.1 mg/dL (8.6-10.3); Potassium 4.8 mmol/L (3.5-5.0)
[2021-03-17 07:49] VITALS: BP 122/68
[2021-03-17] MEDS: D5W 1/2 NS KCl 20 meq 1000 ml 1,000 ML IV SCH (07:55)
[2021-03-17] MEDS ORDERED: CMC:Dabigatran 150 mg CAP (NF) PO SCH (09:00)
== END 2021-03-17 10:08 | disposition home or self-care (01) | DRG 620 ==
LOC: AA 06:04 → SSU 14:37
PROVIDERS: ADMIT Surgery; ATTEND Surgery

== ENCOUNTER 2021-05-20 12:57 | Observation (INO) ==
[2021-05-20 13:24] LABS: ABS Basophils 0.1 10^3/ul (0-0.2); ABS Eosinophils 0.1 10^3/ul (0-0.6); ABS Lymphocytes 1.4 10^3/ul (1.0-4.8); ABS Monocytes 0.5 10^3/ul (0-0.8); ABS Neutrophils 6.6 10^3/ul (1.5-7.7); Eosinophil % 1.1 %; Hematocrit 40 % (42-52); Hemoglobin 13.8 g/dL (14.0-18.0); Lymphocyte % 15.9 %; Mean Corpuscular HGB Conc 34 g/dL (31-36); Mean Corpuscular Hemoglobin 28 pg (27-31); Mean Corpuscular Volume 82 fL (80-94); Mean Platelet Volume 8.9 fL (7.4-10.4); Platelet Count 214 10^3/uL (150-450); Red Cell Distribution Width 18 % (10-15); White Blood Count 8.6 10^3/uL (3.5-10.8)
[2021-05-20 13:32] LABS: INR 1.32 (0.86-1.15)
[2021-05-20 13:39] LABS: Albumin 4.3 g/dL (3.2-5.2); Albumin/Globulin Ratio 1.4 (1-3); Calcium 9.7 mg/dL (8.6-10.3); Potassium 3.7 mmol/L (3.5-5.0); Total Bilirubin 0.7 mg/dL (0.2-1.0); Total Protein 7.3 g/dL (6.4-8.9); eGFR CKD-EPI 96.6 (>60)
[2021-05-20 13:40] LABS: Troponin I 0.01 ng/mL (<0.03)
[2021-05-20 17:26] LABS: Troponin I 0.03 ng/mL (<0.03)
[2021-05-20] MEDS ORDERED: Al Hydrox/Mg Hydrox/Simet LIQ 30 ML UDC PO PRN (20:53)
[2021-05-20] MEDS ORDERED: NS 0.9% 1000 ml BAG 1,000 ML IV SCH (21:00)
[2021-05-20 21:33] LABS: TSH Ultra Thyroid Stim Horm 2.35 mcIU/mL (0.34-5.60)
[2021-05-20] MEDS: CMC:Dabigatran 150 mg CAP (NF) PO SCH (23:51)
[2021-05-21] MEDS: CMC:Dabigatran 150 mg CAP (NF) PO SCH (08:07)
[2021-05-21] MEDS ORDERED: Cholecalciferol (VIT D3) 1,000 unit TAB PO SCH (09:00)
[2021-05-21] MEDS ORDERED: Aspirin EC 81 mg TAB.EC (enteric coated) PO SCH (09:00)
[2021-05-21 11:52] VITALS: BP 119/48
== END 2021-05-21 16:44 | disposition home or self-care (01) ==
LOC: ED 12:57 → EDHOLD 12:57 → MEDTELE 23:21
PROVIDERS: ADMIT Internal Medicine; ATTEND Internal Medicine

== ENCOUNTER 2023-10-25 16:38 | Inpatient (IN) ==
[2023-10-25] MEDS ORDERED: Succinylcholine 200 mg VIAL 20 mg/ml 10 ml VIAL (200 mg) ONE (16:53)
[2023-10-25] MEDS ORDERED: Etomidate 40 mg/20 ml (2 MG/ML) 20 ml VIAL (40 mg) ONE (16:53)
[2023-10-25] MEDS ORDERED: EPINEPHrine SYR 0.1MG/ML 10 ml SYRINGE IV ONE (16:53)
[2023-10-25] MEDS ORDERED: Propofol 10 MG/ML 20 ML BTL ONE (16:53)
[2023-10-25] MEDS ORDERED: Propofol 10 mg/ml 100 ML BTL 1,000 MG/100 ML BTL ONE (17:04)
[2023-10-25] MEDS: Propofol 10 mg/ml 100 ML BTL 1,000 MG/100 ML BTL IV SCH (17:07)
[2023-10-25] MEDS ORDERED: Midazolam 10 mg/10 ml VIAL 1 mg/ml 10 ml VIAL (10 mg) ONE (17:13)
[2023-10-25] MEDS: Midazolam 10 mg/10 ml VIAL 1 mg/ml 10 ml VIAL (10 mg) IV SLOW PU ONE (17:14)
[2023-10-25 17:35] LABS: ABS Basophils 0.1 10^3/uL (0.0-0.1); ABS Lymphocytes 1.9 10^3/uL (1.0-4.8); ABS Monocytes 1.2 10^3/uL (0.0-1.1); ABS Neutrophils 7.2 10^3/uL (1.5-7.6); ABS Nucleated RBC 0.03 10^3/ul; Hematocrit 45.8 % (38-53); Hemoglobin 16.2 g/dL (13.2-16.3); Lymphocyte % 17.8 %; Mean Corpuscular Hemoglobin 30.4 pg (27-33); Mean Corpuscular Hgb Conc 35.3 g/dL (31-36); Mean Corpuscular Volume 85.9 fL (80-97); Mean Platelet Volume 9.4 fL (7.5-11.2); Nucleated Red Blood Cells % 0.3 %/100WBC (0.0-0.8); Platelet Count 164 10^3/uL (150-450); Red Blood Count 5.33 10^6/uL (4.06-5.63); Red Cell Distribution Width 14.3 % (12-17); White Blood Count 10.4 10^3/uL (3.6-10.2)
[2023-10-25 17:49] LABS: High Sens Troponin Baseline 168 pg/mL (<20)
[2023-10-25 17:57] LABS: ALT 59 U/L (7-52); Albumin 4.2 g/dL (3.2-5.2); Albumin/Globulin Ratio 1.6 (1-3); Alkaline Phosphatase 31 U/L (35-149); Anion Gap 21 mmol/L (2-16); Blood Urea Nitrogen 16 mg/dL (6-24); CO2 Carbon Dioxide 28 mmol/L (22-32); Calcium 9.8 mg/dL (8.6-10.3); Chloride 77 mmol/L (101-111); Creatinine, Serum 1.29 mg/dL (0.67-1.17); Globulin 2.7 g/dL (2-4); Glucose 151 mg/dL (70-100); Sodium 126 mmol/L (135-145); Total Bilirubin 1.9 mg/dL (0.2-1.0); Total Protein 6.9 g/dL (6.4-8.9); eGFR CKD-EPI 61.2 (>60)
[2023-10-25 18:16] LABS: TSH Ultra Thyroid Stim Horm 2.49 mcIU/mL (0.34-5.60)
[2023-10-25] MEDS: fentaNYL 100 mcg/2 ml 50 MCG/ML VIAL IV SLOW PU ONE (18:16)
[2023-10-25] MEDS: Heparin 5000 UNITS/ML 1 mL VIAL IV SCH (18:27)
[2023-10-25] MEDS: Heparin DRIP 25,000 UNITS BAG 25,000 UNITS/250 ML BAG IV SCH (18:27)
[2023-10-25 18:31] LABS: Resp Rate 12
[2023-10-25 18:35] LABS: PCO2 Arterial 43 mmHg (35-45); PO2 Arterial 436 mmHg (80-100)
[2023-10-25 18:55] LABS: High Sensitivity Troponin 1 Hr 186 pg/mL (<20)
[2023-10-25 18:58] LABS: Urine Appearance Turbid; Urine Bilirubin Negative (Negative); Urine Blood 1+ (Negative); Urine Color Yellow; Urine Glucose Negative (Negative); Urine Ketones Negative (Negative); Urine Nitrite Negative (Negative); Urine Protein 2+ (>=100 mg/dL) (Negative); Urine Specific Gravity 1.022 (1.002-1.030); Urine Urobilinogen 1+ (Negative)
[2023-10-25 19:04] LABS: Creatinine, Serum 1.42 mg/dL (0.67-1.17); eGFR CKD-EPI 54.5 (>60)
[2023-10-25 19:15] LABS: Urine Bacteria Absent /HPF (Absent); Urine Red Blood Cell Trace(0-2/hpf) /HPF (0-Trace); Urine White Blood Cell Trace(0-5/hpf) /HPF (0-Trace)
[2023-10-25] MEDS ORDERED: Norepinephrine 4 MG/250mL D5W 4,000 MCG/250 ML BAG IV ONE (19:40)
[2023-10-25] MEDS: Iohexol 350 (CONTRAST) 500 ML MDV IV ONE (20:14)
[2023-10-25] MEDS: Norepinephrine 4 MG/250mL D5W 4,000 MCG/250 ML BAG IV SCH (20:17)
[2023-10-25 20:50] LABS: Magnesium 1.7 mg/dL (1.9-2.7)
[2023-10-25] MEDS: Famotidine IV 10 MG/ML 2 ml VIAL (20 mg) IV SLOW PU SCH (21:09)
[2023-10-25] MEDS: Chlorhexidine MOUTHWASH 0.12% 15 ML UDC TOPICAL SCH (21:11)
[2023-10-25] MEDS: Lactated Ringers 1000 ml BAG 1,000 ML IV SCH (21:16)
[2023-10-25] MEDS: Magnesium Sulfate 2 gm BAG 2 GM/50 ML BAG IVPB ONE (21:18)
[2023-10-25 21:19] LABS: Creatinine, Serum 1.46 mg/dL (0.67-1.17); Magnesium 1.7 mg/dL (1.9-2.7); Potassium 1.9 mmol/L (3.5-5.0); eGFR CKD-EPI 52.7 (>60)
[2023-10-25] MEDS: KCL 20 MEQ/100 ML IVPREMIX 20 MEQ/100 ML BAG IV SCH (21:23)
[2023-10-25] MEDS: Midazolam 5 mg/5 ml VIAL 1 mg/ml 5 ml VIAL (5 mg) IV SLOW PU ONE (21:28)
[2023-10-25] MEDS: Dexmedetomidine 1,000 MCG in NS 0.9% 250 ml 240 ML IV SCH (21:44)
[2023-10-25] MEDS: Midazolam 5 mg/5 ml VIAL 1 mg/ml 5 ml VIAL (5 mg) ONE (22:32)
[2023-10-25] MEDS: Thiamine 100 MG/ML 2 ml VIAL 100 MG, Folic Acid IV 1 MG, Multiple Vitamin IV ADULT 10 M... IV ONE (23:22)
[2023-10-26] MEDS: KCL 20 MEQ/100 ML IVPREMIX 20 MEQ/100 ML BAG IV SCH ×3 (01:40→17:42)
[2023-10-26 04:37] LABS: ABS Lymphocytes 0.5 10^3/uL (1.0-4.8); ABS Monocytes 0.8 10^3/uL (0.0-1.1); ABS Neutrophils 6.9 10^3/uL (1.5-7.6); Eosinophil % 0.1 %; Hematocrit 38.3 % (38-53); Lymphocyte % 5.8 %; Mean Corpuscular Hemoglobin 31.3 pg (27-33); Mean Corpuscular Hgb Conc 36.5 g/dL (31-36); Mean Corpuscular Volume 85.8 fL (80-97); Mean Platelet Volume 8.8 fL (7.5-11.2); Platelet Count 106 10^3/uL (150-450); Red Blood Count 4.46 10^6/uL (4.06-5.63); Red Cell Distribution Width 14.4 % (12-17); White Blood Count 8.3 10^3/uL (3.6-10.2)
[2023-10-26 05:15] LABS: % Iron Saturation 26 % (15-55); .Transferrin 186 mg/dL (203-362); ALT 46 U/L (7-52); AST 80 U/L (13-39); Albumin 3.5 g/dL (3.2-5.2); Albumin/Globulin Ratio 1.5 (1-3); Alkaline Phosphatase 27 U/L (35-149); Anion Gap 8 mmol/L (2-16); Blood Urea Nitrogen 15 mg/dL (6-24); CO2 Carbon Dioxide 37 mmol/L (22-32); Calcium 8.8 mg/dL (8.6-10.3); Chloride 86 mmol/L (101-111); Cholesterol 94 mg/dL; Globulin 2.4 g/dL (2-4); Glucose 145 mg/dL (70-100); HDL Cholesterol 35.4 mg/dL; Iron 67 ug/dL (50-212); LDL Cholesterol 40 mg/dL; Magnesium 2.4 mg/dL (1.9-2.7); Phosphorus 2.5 mg/dL (2.5-5.0); Potassium 2.4 mmol/L (3.5-5.0); Sodium 131 mmol/L (135-145); Total Iron Binding Capacity 260 mcg/dL (250-450); Total Protein 5.9 g/dL (6.4-8.9); Triglycerides 94 mg/dL; Unsaturated Iron Binding 193 ug/dL; eGFR CKD-EPI 60.6 (>60)
[2023-10-26 05:22] LABS: Ferritin 535.8 ng/mL (24-336)
[2023-10-26] MEDS: Lactated Ringers 1000 ml BAG 1,000 ML IV SCH (09:56)
[2023-10-26] MEDS: Sulfur Hexaflouride MICROSPHR 25 MG VIAL IV ONE (10:07)
[2023-10-26 10:15] LABS: Activated Partial Thrombo Time 68.5 seconds (26.0-38.0)
[2023-10-26 10:15] LABS: Folate > 20.00 ng/mL (5.90-24.80)
[2023-10-26 10:16] LABS: Vitamin B12 942 pg/mL (180-914)
[2023-10-26 11:49] LABS: Vitamin D Total 25(OH) 59.6 ng/mL (20-50)
[2023-10-26 11:50] LABS: INR 1.14 (0.83-1.13)
[2023-10-26 16:34] LABS: Calcium 8.2 mg/dL (8.6-10.3); Creatinine, Serum 1.2 mg/dL (0.67-1.17); Potassium 2.9 mmol/L (3.5-5.0); eGFR CKD-EPI 66.7 (>60)
[2023-10-26 17:51] LABS: High Sensitivity Troponin 1 Hr 230 pg/mL (<20)
[2023-10-26] MEDS: fentaNYL 100 mcg/2 ml 50 MCG/ML VIAL IV SLOW PU PRN (19:47)
[2023-10-26] MEDS: Midazolam 5 mg/5 ml VIAL 1 mg/ml 5 ml VIAL (5 mg) IV SLOW PU ONE (20:32)
[2023-10-27 00:28] LABS: High Sensitivity Troponin 3 Hr 190 pg/mL (<20)
[2023-10-27] MEDS: Midazolam 5 mg/5 ml VIAL 1 mg/ml 5 ml VIAL (5 mg) IV SLOW PU ONE ×2 (00:46→04:00)
[2023-10-27] MEDS: Haloperidol 5 mg/ml SDV IV/IM 5 MG/ML AMP IV SLOW PU ONE (02:58)
[2023-10-27 03:59] LABS: Hematocrit 36.7 % (38-53); Hemoglobin 13.1 g/dL (13.2-16.3); Mean Corpuscular Hemoglobin 31.5 pg (27-33); Mean Corpuscular Hgb Conc 35.7 g/dL (31-36); Red Blood Count 4.17 10^6/uL (4.06-5.63); Red Cell Distribution Width 14.1 % (12-17); White Blood Count 9.2 10^3/uL (3.6-10.2)
[2023-10-27 04:37] LABS: ABS Basophils 0.1 10^3/uL (0.0-0.1); ABS Lymphocytes 0.9 10^3/uL (1.0-4.8); ABS Monocytes 0.7 10^3/uL (0.0-1.1); ABS Neutrophils 7.6 10^3/uL (1.5-7.6); Eosinophil % 0.4 %; Lymphocyte % 9.6 %; Platelet Count 97 10^3/uL (150-450)
[2023-10-27 04:45] LABS: Albumin/Globulin Ratio 1.6 (1-3); Calcium 7.9 mg/dL (8.6-10.3); Creatinine, Serum 1.19 mg/dL (0.67-1.17); Globulin 1.9 g/dL (2-4); Magnesium 2.2 mg/dL (1.9-2.7); Potassium 3.4 mmol/L (3.5-5.0); Total Bilirubin 1.8 mg/dL (0.2-1.0); Total Protein 4.9 g/dL (6.4-8.9); eGFR CKD-EPI 67.4 (>60)
[2023-10-27] MEDS: KCL 20 MEQ/100 ML IVPREMIX 20 MEQ/100 ML BAG IV SCH (05:50)
[2023-10-27] MEDS: KCL 20 MEQ/100 ML IVPREMIX 20 MEQ/100 ML BAG IV ONE ×2 (10:08→12:11)
[2023-10-27] MEDS ORDERED: Midazolam 2 mg/2 ml VIAL 1 mg/ml 2 ml VIAL (2 mg) IV SLOW PU PRN (10:32)
[2023-10-27] MEDS: Acetaminophen IV 1 GM/100ML 1,000 MG/100 ML BAG IV PRN (11:22)
[2023-10-27 14:20] LABS: Calcium 7.8 mg/dL (8.6-10.3); Creatinine, Serum 1.29 mg/dL (0.67-1.17); Potassium 3.7 mmol/L (3.5-5.0); eGFR CKD-EPI 61.2 (>60)
[2023-10-27] MEDS: Sulfur Hexaflouride MICROSPHR 25 MG VIAL IV ONE (15:17)
[2023-10-27] MEDS: Potassium EFFERVES 25 meq TAB PO ONE (16:18)
[2023-10-27] MEDS: CMCS:Dabigatran 150 mg CAP (NF) PO SCH (22:10)
[2023-10-27 23:09] LABS: Calcium 7.8 mg/dL (8.6-10.3); Creatinine, Serum 1.23 mg/dL (0.67-1.17); Potassium 3.5 mmol/L (3.5-5.0); eGFR CKD-EPI 64.7 (>60)
[2023-10-28] MEDS: Potassium Chlor 20 meq TAB.ER PO ONE ×3 (02:15→09:10)
[2023-10-28 05:19] LABS: ABS Basophils 0.1 10^3/uL (0.0-0.1); ABS Monocytes 0.9 10^3/uL (0.0-1.1); ABS Neutrophils 6.2 10^3/uL (1.5-7.6); ABS Nucleated RBC 0.01 10^3/ul; Eosinophil % 0.6 %; Hematocrit 31.2 % (38-53); Hemoglobin 11.3 g/dL (13.2-16.3); Lymphocyte % 12.7 %; Mean Corpuscular Hemoglobin 32.1 pg (27-33); Mean Corpuscular Hgb Conc 36.2 g/dL (31-36); Mean Corpuscular Volume 88.6 fL (80-97); Mean Platelet Volume 8.8 fL (7.5-11.2); Nucleated Red Blood Cells % 0.1 %/100WBC (0.0-0.8); Platelet Count 100 10^3/uL (150-450); Red Blood Count 3.52 10^6/uL (4.06-5.63); White Blood Count 8.2 10^3/uL (3.6-10.2)
[2023-10-28 05:26] LABS: Albumin 2.8 g/dL (3.2-5.2); Albumin/Globulin Ratio 1.4 (1-3); Calcium 7.9 mg/dL (8.6-10.3); Creatinine, Serum 1.17 mg/dL (0.67-1.17); Magnesium 1.9 mg/dL (1.9-2.7); Potassium 3.5 mmol/L (3.5-5.0); Total Protein 4.8 g/dL (6.4-8.9); eGFR CKD-EPI 68.8 (>60)
[2023-10-28] MEDS ORDERED: Sulfur Hexaflouride MICROSPHR 25 MG VIAL ONE (08:30)
[2023-10-28] MEDS: Aspirin EC 81 mg TAB.EC (enteric coated) PO SCH (09:10)
[2023-10-28] MEDS: Magnesium Sulfate IV 1GM/100ML 1 GM/100 ML BAG IV ONE (09:10)
[2023-10-28] MEDS: Heparin DRIP 25,000 UNITS BAG 25,000 UNITS/250 ML BAG IV SCH (13:46)
[2023-10-28 13:53] LABS: Calcium 8.6 mg/dL (8.6-10.3); Creatinine, Serum 1.19 mg/dL (0.67-1.17); Potassium 3.9 mmol/L (3.5-5.0); eGFR CKD-EPI 67.4 (>60)
[2023-10-28] MEDS ORDERED: Heparin 5000 UNITS/ML 1 mL VIAL IV SCH (14:00)
[2023-10-28] MEDS: KCL 10 MEQ/50 ML IVPREMIX 10 MEQ/50 ML BAG IV ONE (15:35)
[2023-10-28] MEDS ORDERED: Enoxaparin 100 MG/ML SYR SUBCUT SCH (21:00)
[2023-10-29 06:30] LABS: ABS Basophils 0.1 10^3/uL (0.0-0.1); ABS Eosinophils 0.1 10^3/uL (0.0-0.5); ABS Lymphocytes 1.2 10^3/uL (1.0-4.8); ABS Monocytes 0.7 10^3/uL (0.0-1.1); ABS Neutrophils 3.7 10^3/uL (1.5-7.6); ABS Nucleated RBC 0.01 10^3/ul; Hematocrit 33.7 % (38-53); Hemoglobin 12.1 g/dL (13.2-16.3); Lymphocyte % 20.7 %; Mean Corpuscular Hemoglobin 31.7 pg (27-33); Mean Corpuscular Hgb Conc 35.8 g/dL (31-36); Mean Corpuscular Volume 88.5 fL (80-97); Mean Platelet Volume 8.6 fL (7.5-11.2); Nucleated Red Blood Cells % 0.2 %/100WBC (0.0-0.8); Platelet Count 145 10^3/uL (150-450); Red Blood Count 3.81 10^6/uL (4.06-5.63); Red Cell Distribution Width 14.2 % (12-17); White Blood Count 5.7 10^3/uL (3.6-10.2)
[2023-10-29 07:47] LABS: Albumin 3.2 g/dL (3.2-5.2); Albumin/Globulin Ratio 1.2 (1-3); Calcium 8.4 mg/dL (8.6-10.3); Creatinine, Serum 1.14 mg/dL (0.67-1.17); Globulin 2.6 g/dL (2-4); Potassium 3.3 mmol/L (3.5-5.0); Total Protein 5.8 g/dL (6.4-8.9); eGFR CKD-EPI 70.9 (>60)
[2023-10-29] MEDS: Potassium Chlor 20 meq TAB.ER PO SCH (09:38)
[2023-10-29 10:23] LABS: Vitamin E 7.8 mg/L (5.5 - 17.0)
[2023-10-29] MEDS ORDERED: Prochlorperazine 5 mg/ml 2 ml VIAL (10 mg) IV PRN (11:44)
[2023-10-29] MEDS: KCL 20 MEQ/100 ML IVPREMIX 20 MEQ/100 ML BAG IV SCH (11:54)
[2023-10-29] MEDS: Potassium Chloride LIQUID 20 MEQ/15 ML LIQUID PO ONE (16:14)
[2023-10-30 05:35] LABS: ABS Basophils 0.1 10^3/uL (0.0-0.1); ABS Eosinophils 0.1 10^3/uL (0.0-0.5); ABS Monocytes 0.7 10^3/uL (0.0-1.1); ABS Neutrophils 3.3 10^3/uL (1.5-7.6); Eosinophil % 2.7 %; Hematocrit 30.5 % (38-53); Hemoglobin 10.7 g/dL (13.2-16.3); Lymphocyte % 18.6 %; Mean Corpuscular Hemoglobin 31.4 pg (27-33); Mean Corpuscular Volume 89.6 fL (80-97); Platelet Count 159 10^3/uL (150-450); Red Cell Distribution Width 14.5 % (12-17); White Blood Count 5.2 10^3/uL (3.6-10.2)
[2023-10-30] MEDS: KCL 10 MEQ/50 ML IVPREMIX 10 MEQ/50 ML BAG IV SCH (06:28)
[2023-10-30 07:41] LABS: Albumin/Globulin Ratio 1.5 (1-3); Calcium 8.4 mg/dL (8.6-10.3); Creatinine, Serum 1.14 mg/dL (0.67-1.17); Magnesium 1.8 mg/dL (1.9-2.7); Potassium 4.1 mmol/L (3.5-5.0); Total Bilirubin 1.8 mg/dL (0.2-1.0); eGFR CKD-EPI 70.9 (>60)
[2023-10-30] MEDS: Magnesium Sulfate 2 gm BAG 2 GM/50 ML BAG IVPB ONE (08:25)
[2023-10-30] MEDS ORDERED: Flumazenil 0.5 mg/5 ml 0.1 MG/ML 5 ml VIAL IV PRN (08:31)
[2023-10-30] MEDS ORDERED: Naloxone 0.4 mg VIAL 0.4 mg/ml 1 ml VIAL IV PUSH PRN (08:31)
[2023-10-30] MEDS ORDERED: fentaNYL 250 mcg/5 ml 50 MCG/ML 5 ml VIAL (250 MCG) ONE (09:37)
[2023-10-30] MEDS ORDERED: Midazolam 5 mg/5 ml VIAL 1 mg/ml 5 ml VIAL (5 mg) ONE ×2 (09:37→11:32)
[2023-10-30] MEDS ORDERED: niCARdipine 0.1MG/ML IVPREMIX 20 MG/200 ML BAG IV ONE (11:33)
[2023-10-30] MEDS ORDERED: fentaNYL 100 mcg/2 ml 50 MCG/ML VIAL ONE (11:33)
[2023-10-30] MEDS ORDERED: Iohexol 350 (CONTRAST) 200 ML MDV IV ONE (11:33)
[2023-10-30] MEDS ORDERED: nitroGLYCERIN DRIP 25,000 MCG/250 ML BTL ONE (11:33)
[2023-10-30] MEDS ORDERED: Lidocaine 1% MPF 5 ML VIAL ONE (11:33)
[2023-10-30] MEDS ORDERED: Heparin 2 UNITS/ML 1000 mls 2,000 ML IV ONE (11:33)
[2023-10-30] MEDS ORDERED: Heparin 1,000 UNIT/ML 10 ml (10,000 UNITS) CATHLAB/DIALYSIS ONE (11:58)
[2023-10-30] MEDS: fentaNYL 100 mcg/2 ml 50 MCG/ML VIAL IV SLOW PU ONE (13:43)
[2023-10-30] MEDS: Midazolam 10 mg/10 ml VIAL 1 mg/ml 10 ml VIAL (10 mg) IV SLOW PU ONE (13:44)
[2023-10-30] MEDS: Enoxaparin 100 MG/ML SYR SUBCUT SCH (14:40)
[2023-10-30 18:34] VITALS: BP 119/62
[2023-10-31 09:41] LABS: Vitamin K Level 1.87 ng/mL (0.10-2.20)
[2023-11-01 14:03] LABS: Vitamin A, S 62.4 mcg/dL (32.5-78.0)
== END 2023-10-30 19:45 | disposition short-term general hospital (02) | DRG 286 ==
LOC: ED 16:38 → EDHOLD 17:39 → ICU 19:15
PROVIDERS: ADMIT Surgery Surgical Critical Care; ATTEND Surgery Surgical Critical Care

== ENCOUNTER 2024-06-19 12:34 | Observation (INO) ==
[2024-06-19] MEDS: D5NS 0.9% 1000 ml BAG 1,000 ML IV SCH (13:56)
[2024-06-19] MEDS ORDERED: Acetaminophen IV 1 GM/100ML 1,000 MG/100 ML BAG IV PRN (14:43)
[2024-06-19] MEDS ORDERED: fentaNYL 100 mcg/2 ml 50 MCG/ML VIAL ONE (15:23)
[2024-06-19] MEDS: CMCS: Dabigatran 150 mg CAP (NF) PO SCH (22:26)
[2024-06-19] MEDS: CMCS: Epleronone 25 mg TAB (NF) PO SCH (22:31)
[2024-06-20 09:37] VITALS: BP 140/78
[2024-06-20] MEDS: MULTIVITAMIN MIN IRON FA VIT K PO SCH (10:13)
== END 2024-06-20 10:58 | disposition home or self-care (01) ==
LOC: INTOOBSV 12:34 → SSU 12:34
PROVIDERS: ADMIT Surgery; ATTEND Surgery Surgical Critical Care
PROC: O.GIEGD (2024-06-19 14:35)